=== PATIENT | female | born 1995 | race Caucasian/White ===

== ENCOUNTER 2017-07-28 03:00 | Emergency (ER) | payer OTHER ==
[~2017-07-28] VITALS: Ht 170.2 cm; Wt 54.5 kg
[~2017-07-28 03:00] MED LIST: IBUP-1459 PO
[2017-07-28 03:08] VITALS: TEMP 36.7; Ht 170.2 cm; Wt 54.5 kg
--- NOTE | 2017-07-28 04:36 | EMERGENCY ROOM VISIT NOTE ---
History Report prepared by Bucky: Marichuy Olson Under the Supervision of: Dr. Vale Rodriguez D.O. 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 The patient presents to the ED by EMS. The patient was found sleeping on a bench in front of [facility]. The patient states she remembers most of the night. She was at [facility] with her friends. She was drinking beer and liquor. She remembers going to [facility] with her friends, but is unsure who stopped her and brought her to the ED. She denies having any nausea, pain, or injury. She does not have any concerns of assault. She denies any recent illness. She is not on any medications. She denies any drug use tonight. Source of History: patient Onset: CONCESSION STAND ATTENDANT Position: other (global) Quality: other (alcohol intoxication) Timing: other (persistent) Associated Symptoms: No nausea Review of Systems See HPI for pertinent positives & negatives. A total of 10 systems reviewed and were otherwise negative. Past Medical & Surgical Medical Problems: (1) No chronic problems Family History No pertinent family history stated. Social History Smoking Status: Unknown if Ever Smoked Occupation Status: [employer] Current/Historical Medications No Active Prescriptions or Reported Meds Allergies Coded Allergies: No Known Allergies (Unverified , 04/15/16) Physical Exam Vital Signs Date Time Temp Pulse Resp B/P (MAP) Pulse Ox O2 Delivery O2 Flow Rate FiO2 07/28/17 04:43 102 15 119/73 95 07/28/17 03:12 86 07/28/17 03:08 36.7 80 15 106/70 99 Room Air Physical Exam GENERAL: faint smell of alcohol, alert, well appearing, well nourished, no distress, non-toxic EYE EXAM: normal conjunctiva, PERRL and EOM's grossly intact OROPHARYNX: no exudate, no erythema, lips, buccal mucosa, and tongue normal and mucous membranes are moist NECK: supple, no nuchal rigidity, no adenopathy, non-tender LUNGS: Clear to auscultation. Normal chest wall mechanics HEART: no murmurs, S1 normal and S2 normal ABDOMEN: abdomen soft, non-tender, normo-active bowel sounds, no masses, no rebound or guarding. BACK: Back is symmetrical on inspection and there is no deformity, no midline tenderness, no CVA tenderness. SKIN: no rashes and no bruising UPPER EXTREMITIES: upper extremities are grossly normal. LOWER EXTREMITIES: No pitting edema. NEURO EXAM: Normal sensorium, cranial nerves II-XII grossly intact, normal speech, no gross weakness of arms, no gross weakness of legs. Medical Decision & Procedures Laboratory Results Test 07/28/17 03:31 Ethyl Alcohol mg/dL 315.0 mg/dl (0-3) Laboratory results per my review. ED Course 0319: The patient was evaluated in room B7. A complete history and physical exam was performed. 0417: I reevaluated the patient. She is still awake and alert. She has a sober friend at bedside. I discussed the findings and the treatment plan with the patient. She verbalizes agreement and understanding. She will be discharged home with her sober friend. 0435: The patient was able to walk steadily. She was discharged home. Medical Decision Differential diagnosis: Etiologies such as alcohol intoxication, toxicologic, infection, hypoglycemia, electrolyte abnormalities, cardiac sources, intracerebral event, neurologic, as well as others were entertained. Patient well-appearing here despite complaints. Denies any trauma or injury tonight, no physical exam findings of trauma. Patient able to find a sober ride , was tolerating by mouth, and ambulated with a steady gait. Vital signs stable throughout. Discussed with patient responsible drinking, symptoms to watch and return for, she verbalized understanding and was agreeable with plan. Medication Reconcilliation Current Medication List: was personally reviewed by me Blood Pressure Screening Patient's blood pressure: Normal blood pressure Blood pressure disposition: Did not require urgent referral Impression Primary Impression: Alcohol intoxication Scribe Attestation The scribe's documentation has been prepared under my direction and personally reviewed by me in its entirety. I confirm that the note above accurately reflects all work, treatment, procedures, and medical decision making performed by me. Departure Information Dispostion Home / Self-Care Prescriptions No Active Prescriptions or Reported Meds Referrals [facility] (PCP) Patient Instructions My [facility] Additional Instructions Please drink responsibly and in a safe location. Do not drink and drive. If you have any new or concerning symptoms, please return to the emergency room. Problem Qualifiers Primary Impression: Alcohol intoxication Complication of substance-induced condition: uncomplicated Qualified Codes: F10.920 - Alcohol use, unspecified with intoxication, uncomplicated
[2017-07-28 04:43] VITALS: BP 119/73; PULSE 102; O2SAT 95
== END 2017-07-28 04:45 | disposition home or self-care (01) ==
LOC: EDBD 03:00 → C.EDB 03:01
DX: F10.920 Alcohol use, unspecified with intoxication, uncomplicated (principal)